=== PATIENT | female | born 2000 | race Hispanic/Latino ===

== ENCOUNTER 2023-12-05 15:08 | Emergency (ER) | payer OTHER ==
[~2023-12-05] VITALS: Ht 170.2 cm; Wt 97.5 kg
[2023-12-05 15:15] VITALS: O2SAT 99
[2023-12-05] MEDS ORDERED: AMOX TR-K CLV1 EAC2 PO (16:46)
== END 2023-12-05 17:09 | disposition home or self-care (01) ==
LOC: ER 15:14
DX: R19.7 Diarrhea, unspecified (principal); R10.9 Unspecified abdominal pain; F90.9 Attention-deficit hyperactivity disorder, unspecified type
CPT/HCPCS: 99282